=== PATIENT | female | born 1960 | race African-American/Black ===

== ENCOUNTER 2019-01-29 12:21 | Emergency (ER) | payer MEDICAID ==
[~2019-01-29] VITALS: Ht 167.6 cm; Wt 96.0 kg
[2019-01-29] MEDS ORDERED: HYDR12.529 PO (12:28)
[2019-01-29] MEDS ORDERED: ASPI-1159 PO (12:28)
[2019-01-29 12:49] LABS: BASOPHILS % 0.7 % (0.0-2.0); EOSINOPHILS % 1.4 % (0.0-5.0); HEMATOCRIT. 39.5 % (36.0-48.0); LYMPHOCYTES % 38.2 % (20.0-50.0); MEAN CORPUSCULAR HEMOGLOBIN 31.6 pg (28.0-32.0); MEAN CORPUSCULAR VOLUME 96.3 fL (81.0-99.0); MEAN PLATELET VOLUME 7.8 fl (7.4-10.4); MONOCYTES % 9.1 % (2.0-8.0); NEUTROPHILS % 50.6 % (40.0-76.0); PLATELET 214 x1000/uL (130-400); RED CELL DISTRIBUTION WIDTH 17.3 % (11.6-14.6)
[2019-01-29 12:55] LABS: CHLORIDE 113 mEq/L (98-107)
[2019-01-29 12:56] LABS: INR 0.9; PROTHROMBIN TIME 9.3 sec (9.6-11.0)
[2019-01-29 13:06] LABS: ETHANOL BLOOD 287 mg/dL
[2019-01-29] MEDS ORDERED: CLONIDINE 0.2MG TABLET PO ONE (21:30)
[2019-01-29] MEDS ORDERED: AMLODIPINE 10MG TABLET PO ONE (21:30)
[2019-01-30] MEDS ORDERED: ACETAMINOPHEN 650MG/20.3ML UDC PO ONE (22:45)
[2019-01-31] MEDS ORDERED: ACETAMINOPHEN 650MG/20.3ML UDC PO NR (04:15)
[2019-01-31 12:25] VITALS: BP 195/95
== END 2019-01-31 12:55 | disposition home or self-care (01) ==
LOC: ER 12:21
DX: F10.129 Alcohol abuse with intoxication, unspecified (principal); Y90.8 Blood alcohol level of 240 mg/100 ml or more; S05.12XA Contusion of eyeball and orbital tissues, left eye, initial encounter; Y04.2XXA Assault by strike against or bumped into by another person, initial encounter; S09.8XXA Other specified injuries of head, initial encounter; W18.39XA Other fall on same level, initial encounter; Y93.89 Activity, other specified; Y92.89 Other specified places as the place of occurrence of the external cause; E86.0 Dehydration; R74.0 Nonspecific elevation of levels of transaminase and lactic acid dehydrogenase [LDH]; H44.521 Atrophy of globe, right eye; H54.40 Blindness, one eye, unspecified eye; Z88.0 Allergy status to penicillin; Z88.8 Allergy status to other drugs, medicaments and biological substances
CPT/HCPCS: 36415; 70486; 80320; 99284; G0480